=== PATIENT | male | born 1985 | race Caucasian/White ===

== ENCOUNTER 2018-02-06 14:45 | Emergency (ER) | payer MEDICAID ==
[2018-02-06 14:51] VITALS: RESP 16; O2SAT 100
[2018-02-06] MEDS ORDERED: Sodium Chloride 0.9% 1,000 ML IV ONE (15:20)
[2018-02-06 16:08] LABS: BASO % 0.4 % (0.0-2.0); EOS % 0.5 % (0.0-4.0); LYMPH # 0.7 K/uL (1.0-4.3); LYMPH % 15.5 % (20.0-40.0); MEAN CELL VOLUME 82.6 fL (80.0-94.0); MEAN CORPUSCULAR HEMOGLOBIN 28.1 pg (27.0-31.0); MEAN PLATELET VOLUME 7.5 fL (7.2-11.7); MONO # 0.6 K/uL (0.0-0.8); MONO % 12.5 % (0.0-10.0); NEUT # 3.3 K/uL (1.8-7.0); NEUT % 71.1 % (50.0-75.0); RBC 4.64 Mil/uL (4.40-5.90); RED CELL DISTRIBUTION WIDTH 13.6 % (11.5-14.5); WHITE BLOOD COUNT 4.6 K/uL (4.8-10.8)
[2018-02-06 16:09] LABS: SQUAMOUS EPITHIAL 1 /hpf (0-5); URINE BILIRUBIN NEGATIVE (NEGATIVE); URINE BLOOD NEGATIVE (NEGATIVE); URINE CLARITY Clear (Clear); URINE COLOR Yellow (YELLOW); URINE GLUCOSE (UA) NORMAL (Normal); URINE LEUKOCYTE ESTERASE NEG Leu/uL (Negative); URINE PROTEIN NEGATIVE (NEGATIVE); URINE UROBILINOGEN NORMAL mg/dL (0.2-1.0)
[2018-02-06 16:23] LABS: ALB/GLOB RATIO 1.3 (1.0-2.1); ALBUMIN 3.6 g/dL (3.5-5.0); ALT/SGPT 22 U/L (21-72); AST/SGOT 20 U/L (17-59); BLOOD UREA NITROGEN 15 mg/dL (9-20); GFR AFRICAN-AMERICAN > 60; GFR NON-AFRICAN AMERICAN > 60; LIPASE 70 U/L (23-300)
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
[2018-02-06] MEDS ORDERED: Iodixanol 320 MG/ML 100 ML BOTTLE IV ONE (17:08)
--- NOTE | 2018-02-06 17:53 | CT ---
PROCEDURE: CT Abdomen and Pelvis with contrast HISTORY: painless hematuria- ?passed stone vs. trauma COMPARISON: None. TECHNIQUE: Following the intravenous administration of iodinated contrast material, a CT examination of the abdomen and pelvis performed from the domes of the diaphragms to the symphysis pubis with reformatted datasets provided not only axial but also sagittal and coronal planes. Oral contrast was not administered as per referring physician request. Contrast dose: Visipaque 320, 100 cc Radiation dose: Total exam DLP = 432.84 mGy-cm. This CT exam was performed using one or more of the following dose reduction techniques: Automated exposure control, adjustment of the mA and/or kV according to patient size, and/or use of iterative reconstruction technique. FINDINGS: LOWER THORAX: Unremarkable. LIVER: Unremarkable. No gross lesion or ductal dilatation. GALLBLADDER AND BILE DUCTS: Unremarkable. PANCREAS: Unremarkable. No gross lesion or ductal dilatation. SPLEEN: Unremarkable. ADRENALS: Unremarkable. No mass. KIDNEYS AND URETERS: Radiodense urolithiasis or perinephric reaction bilaterally. No hydronephrosis. No definite solid mass appreciated in this single phase contrast evaluation. Renal mass evaluation is best evaluated multi phase pre and postcontrast abdomen pelvis CT with contrast, including multiple time dependent contrast enhancement time points. No overt contour border abnormality or differential enhancement to suggest an obvious mass is seen at this time. No evidence of renal fracture. VASCULATURE: Unremarkable. No aortic aneurysm. BOWEL: Lack of oral contrast limits evaluation the bowel. No obstruction. No gross mural thickening. Limited evaluation of the distal large bowel due to collapse. APPENDIX: Appendix not clearly identified. No suspicious findings suggest appendicitis at this time however. PERITONEUM: Unremarkable. No free fluid. No free air. LYMPH NODES: Unremarkable. No enlarged lymph nodes. BLADDER: Urinary bladder appears smooth and thin walled with no radiodense urolithiasis associated. REPRODUCTIVE: Unremarkable. BONES: No acute fracture. OTHER FINDINGS: None. IMPRESSION: No suspicious renal urinary bladder findings including the bilateral ureters. No obvious posttraumatic renal findings bilaterally. No radiodense urolithiasis or obstructive uropathy. If clinical concern remains for renal mass in follow-up CT or MRI without contrast is advised including multiple time dependent contrast-enhanced imaging series.
[2018-02-06 18:56] VITALS: BP 132/67; PULSE 73; TEMP 98.6
== END 2018-02-06 18:56 | disposition home or self-care (01) ==
LOC: C.ER 14:45
DX: R31.9 Hematuria, unspecified (principal)
CPT/HCPCS: 74177; 80053; 81001; 83690; 85025; 87086; 96360; 99283; J7030; Q9967